=== PATIENT | male | born 1980 | race Caucasian/White ===

== ENCOUNTER 2018-07-08 16:33 | Emergency (ER) | payer MEDICAID ==
--- NOTE | 2018-07-08 16:57 | EDPHY ---
H & P Smoking Status: Never smoked Time Seen by Provider: 07/08/18 16:47 HPI/ROS: CHIEF COMPLAINT: "I think I have jock itch" HISTORY OF PRESENT ILLNESS: 38-year-old immunocompetent male, uncircumcised, history of diabetes, complaining of itching to his penis and swelling to his penis for the past 24 hr. Unclear whether he may have been exposed to poison hernandez. 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 No pain. Urinating without difficulty. No genital trauma. No discharge. No scrotal pain. No dysuria hematuria increased frequency. No new sexual partners. No testicular scrotal pain or discoloration. No perineal pain. No pain with defecation. No abdominal pain. REVIEW OF SYSTEMS: Aside from elements discussed in the HPI, a comprehensive 10 point review of systems was reviewed and is negative. 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 Appears to be in no acute distress. 2) HEAD: Normocephalic, atraumatic 3) HEENT: Pupils equal, round, reactive to light bilaterally. Sclera anicteric. 4) NECK: Full range of motion, no meningeal signs. 5) LUNGS: Clear auscultation bilaterally, no wheezes, no rhonchi, no retractions. 6) HEART: Regular rate and rhythm, no murmur, no heave, no gallop. 7) ABDOMEN: No guarding, no rebound, no focal tenderness, 8) MUSCULOSKELETAL: Moving all extremities, no focal areas of tenderness, no obvious trauma. No peripheral edema or discoloration. 9) BACK: No CVA tenderness, no midline vertebral tenderness, no fluctuance, no step-off, no obvious trauma, no visual or palpable abnormality. 10) SKIN: No rash, no petechiae. [11) : No urethral discharge. Edema to the foreskin with retracted foreskin unable to reduce secondary to edema. DIFFERENTIAL DIAGNOSIS: In no particular order including but not limited to phimosis, paraphimosis, balanitis, contact dermatitis ([place],Zackary Danica) Constitutional: Initial Vital Signs Temperature (C) 36.6 C 07/08/18 16:35 Heart Rate 67 07/08/18 16:35 Respiratory Rate 16 07/08/18 16:35 Blood Pressure 142/67 H 07/08/18 16:35 O2 Sat (%) 97 07/08/18 16:35 O2 Delivery Mode Room Air Allergies/Adverse Reactions: No Known Allergies Allergy (Unverified 07/08/18 16:38) Home Medications: Medication Instructions Recorded Clotrimazole 1% 07/08/18 diphenhydrAMINE [Benadryl 25 MG 25 mg PO Q6 #15 tab 07/08/18 (*)] methylPREDNISolone [Medrol Dose 4 mg PO DAILY #1 ea 07/08/18 Fam] MDM/Departure - MDM Medications Given: Discontinued Medications Sodium Chloride (Ns) 1,000 mls @ 0 mls/hr IV ONCE ONE PRN Reason: Wide Open Stop: 07/08/18 17:27 Last Admin: 07/08/18 17:32 Dose: 1,000 mls Methylprednisolone Sodium Succinate (Solu-Medrol) 125 mg IVP EDNOW ONE Stop: 07/08/18 17:27 Last Admin: 07/08/18 17:33 Dose: 125 mg ED Course/Re-evaluation: I evaluated and participated in the management of the patient. I also evaluated the patient independently. My co-signature indicates that I have reviewed this chart and I agree with the findings and plan of care as documented. My personal H&P findings include: Patient presents the ED with a contact dermatitis involving his penis which has resulted in marked swelling of the foreskin. The patient does have fairly significant soft tissue swelling and minimal erythema. The patient was able to easily retract his foreskin today. It is difficult to pull his foreskin forward secondary to the edema. The patient was noted to have no ischemic changes to his glans penis. The patient is started on IV Solu-Medrol, Benadryl and topical antibiotics. I discussed the case with Dr. Santamaria for will see the patient in the office tomorrow. The patient is instructed to return to the ED for any ischemic pain to the glans penis. (Mac Hobson) - Depart Disposition: Home, Routine, Self-Care Clinical Impression: Edema of penis Condition: Good Instructions: Foreskin Care (ED), Balanitis (ED) Prescriptions: diphenhydrAMINE [Benadryl 25 MG (*)] 25 mg PO Q6 #15 tab methylPREDNISolone [Medrol Dose Fam] 4 mg PO DAILY #1 ea Referrals: Jovanni Santamaria MD [Medical Doctor] - As per Instructions
[2018-07-08] MEDS ORDERED: methylPREDNISolone SOD SUCC 125 MG/2 ML VIAL IVP ONE (17:26)
[2018-07-08] MEDS ORDERED: NS 1,000 ML IV ONE (17:26)
[2018-07-08 17:41] LABS: PLATELET COUNT 250 10^3/uL (150-400)
[2018-07-08 18:26] VITALS: BP 135/78
[2018-07-09 11:02] LABS: GC AMPLIFICATION GENPROBE NEGATIVE (NEGATIVE)
== END 2018-07-08 18:26 | disposition home or self-care (01) ==
DX: N48.89 Other specified disorders of penis (principal)
CPT/HCPCS: 96374; J2930